=== PATIENT | male | born 1975 | race Caucasian/White ===

== ENCOUNTER 2024-06-29 07:07 | Emergency (ER) | payer BC, OTHER ==
[2024-06-29] MEDS ORDERED: MAGNES/ALUMIN/SIMET 30ML UCUP ONE (07:51)
[2024-06-29] MEDS ORDERED: KETOROLAC 30 MG/ML INJ ONE (07:51)
[2024-06-29] MEDS ORDERED: LIDOCAINE VISCOUS 2% 10ML ORAL SOLN ONE (07:51)
[2024-06-29 08:06] LABS: Absolute Eosinophils 0.2 K/uL (0-0.5); Absolute Lymphocytes (CBC) 1.8 K/uL (0.7-4.9); Absolute Monocytes 0.5 K/uL (0.1-1.3); Absolute Neutrophil 10.2 K/uL (1.8-8.0); Basophils % 0.2 % (0-1.3); Eosinophils % 1.7 % (0-4.4); Hematocrit 40.2 % (39.6-49.0); Lymphocytes % 13.9 % (15.3-44.8); MCH 32.7 pg (27.0-35.0); MCHC 34.9 g/dL (32.0-36.0); MCV 93.8 fL (80-100); MPV 6.9 fL (7.6-11.3); Monocytes % 3.8 % (3.3-12.3); Neutrophils % 80.4 % (41.7-73.7); Platelets 302 thou/uL (152-406); RBC Red Blood Cell Count 4.29 M/uL (4.33-5.43); Red Cell Distribution Width 12.5 % (12.1-15.2)
--- NOTE | 2024-06-29 08:33 | RAD REPORT ---
EXAM: Chest Single View HISTORY: CHEST PAIN COMPARISON: 12/20/2023 FINDINGS: LUNGS/PLEURA: The lungs are clear. No pleural effusions or pneumothorax. No pulmonary edema. MEDIASTINUM: The mediastinal silhouette is within normal limits. CARDIAC: The cardiac silhouette is within normal limits. UPPER ABDOMEN: No significant abnormality. BONES: No acute abnormality. LINES/TUBES/OTHER: N/A IMPRESSION: No evidence of acute cardiopulmonary disease.
[2024-06-29 08:36] LABS: Albumin 3.9 g/dL (3.4-5.0); Bilirubin Direct 0.2 mg/dL (0-0.2); Bilirubin Indirect, Calculated 0.4 mg/dL (0.2-0.8); Bilirubin Total 0.6 mg/dL (0.2-1.0); Protein, Total 7.9 g/dL (6.4-8.2)
[2024-06-29 09:06] LABS: Troponin High Sensitivity 12.6 pg/mL (<58.9)
--- NOTE | 2024-06-29 10:42 | EDPHYS ---
Physician Documentation [facility] Name: Dada Almonte Age: 48 yrs Sex: Male : 1975 Arrival Date: 06/29/2024 Time: 07:07 Bed 20 Private MD: ED Physician Desean Luke HPI: 06/29 07:38 This 48 yrs old Male presents to ER via Ambulatory with complaints of Chest Pain, rt armpit pain. 07:38 Patient presents to the ED with a left-sided chest pain radiating to the axilla rt starting last night. It fluctuates in intensity but is not gone completely. Denies aggravating or alleviating factors. Patient reports burping and reflux symptoms which she associates with the pain. Denies other acute complaints, symptoms are moderate in severity, no other aggravating elevating factors.. Historical: - Allergies: 07:30 Iodine; ap3 - Home Meds: 07:30 Albuterol Inhl [Active]; ap3 - PMHx: 07:30 Asthma; ap3 - Immunization history:: Client reports receiving the 2nd dose of the Covid vaccine, Flu vaccine is not up to date. - Infectious Disease History:: Denies. - Social history:: Smoking status: Patient reports use of chewing tobacco. - Family history:: not pertinent. ROS: 07:38 Constitutional: Negative for fever, chills, and weight loss, Respiratory: Negative for rt shortness of breath, cough, wheezing, and pleuritic chest pain, Abdomen/GI: Negative for abdominal pain, nausea, vomiting, diarrhea, and constipation, MS/Extremity: Negative for injury and deformity, Skin: Negative for injury, rash, and discoloration, Neuro: Negative for headache, weakness, numbness, tingling, and seizure, 07:38 Cardiovascular: Positive for chest pain, Negative for edema, Exam: 07:38 Constitutional: This is a well developed, well nourished patient who is awake, alert, rt and in no acute distress. Head/Face: Normocephalic, atraumatic. Cardiovascular: Regular rate and rhythm with a normal S1 and S2. No gallops, murmurs, or rubs. Normal PMI, no JVD. No pulse deficits. Respiratory: Lungs have equal breath sounds bilaterally, clear to auscultation and percussion. No rales, rhonchi or wheezes noted. No increased work of breathing, no retractions or nasal flaring. Abdomen/GI: Soft, non-tender, with normal bowel sounds. No distension or tympany. No guarding or rebound. No evidence of tenderness throughout. Skin: Warm, dry with normal turgor. Normal color with no rashes, no lesions, and no evidence of cellulitis. MS/ Extremity: Pulses equal, no cyanosis. Neurovascular intact. Full, normal range of motion. Neuro: Awake and alert, GCS 15, oriented to person, place, time, and situation. Cranial nerves II-XII grossly intact. Motor strength 5/5 in all extremities. Sensory grossly intact. Cerebellar exam normal. Normal gait. 07:38 Chest/axilla: Palpation to the left side of the chest and to the axilla reproduces chest pain, 1 palpable tender lymph node in the left axilla. 07:38 ECG was reviewed by the Attending Physician. Vital Signs: 07:28 BP 131 / 90; Pulse 77; Resp 17; Temp 98(O); Pulse Ox 100% on R/A; Weight 65.77 kg; ap3 Height 5 ft. 6 in. ; Pain 6/10; 08:33 BP 108 / 75; Pulse 81; Resp 18 S; Pulse Ox 100% on R/A; aa5 09:54 BP 114 / 77; Pulse 60; Resp 15; Pulse Ox 99% on R/A; hb 10:34 BP 111 / 72; Pulse 59; Resp 14 S; Pulse Ox 99% on R/A; aa5 07:28 Body Mass Index 23.40 (65.77 kg, 167.64 cm) ap3 07:28 Pain Scale: Adult ap3 MDM: 07:29 Medical Screening Exam initiated rt 14:09 Differential diagnosis: Nonspecific chest pain, chest wall pain, ACS, pneumonia. HEART rt Score: History: Slightly Suspicious (0), ECG: Normal (0), Age: > 45 and < 65 years (1), Risk Factors: No Risk Factors Known (0), Troponin: < or = 1 x Normal Limit (0), Total Score = 1. Data reviewed: vital signs, lab test result(s), EKG, radiologic studies. Consideration of Admission/Observation Escalation of care including admission/observation considered. 2 negative enzymes, low suspicion for acute coronary syndrome, does not require admission for ACS rule out, patient to follow-up with cardiology as an outpatient.. I considered the following discharge prescriptions or medication management in the emergency department Medications were administered in the Emergency Department. See MAR. Independent interpretation of the following test(s) in the Emergency Department X-Ray: My interpretation is No infiltrate seen on interpretation of x-ray images. Test considered but Not performed: CT: Low suspicion for pulmonary embolism, PE RC negative, does not require CT angiogram to rule out pulmonary embolus. Care significantly affected by the following chronic conditions: Asthma. Counseling: I had a detailed discussion with the patient and/or guardian regarding the historical points, exam findings, and any diagnostic results supporting the discharge/admit diagnosis, lab results, radiology results, the need for outpatient follow up, to return to the emergency department if symptoms worsen or persist or if there are any questions or concerns that arise at home. Response to treatment: the patient's symptoms have markedly improved after treatment. 06/29 07:35 Order name: Basic Metabolic Panel; Complete Time: 09:07 06/29 07:35 Order name: CBC with Diff; Complete Time: 08:34 rt 06/29 07:35 Order name: LFT's; Complete Time: 09:07 rt 06/29 07:35 Order name: Troponin HS; Complete Time: 09:06/29 09:56 Order name: Troponin High Sensitivity; Complete Time: 10:32 aa5 06/29 07:35 Order name: XRAY Chest (1 view); Complete Time: 08:34 06/29 07:35 Order name: Cardiac monitoring; Complete Time: 07:48 rt 06/29 07:35 Order name: EKG - Nurse/Tech; Complete Time: 07:55 rt 06/29 07:35 Order name: IV Saline Lock; Complete Time: 07:55 rt 06/29 07:35 Order name: Labs collected and sent; Complete Time: 07:55 rt 06/29 07:35 Order name: O2 Per Protocol; Complete Time: 07:48 06/29 07:35 Order name: O2 Sat Monitoring; Complete Time: 07:48 rt EC:38 Rate is 82 beats/min. Rhythm is regular, Normal Sinus Rhythm with Incomplete right rt bundle branch block. QRS [place] is Normal. [place] interval is normal. QRS interval is normal. QT interval is normal. No Q waves. No ST changes noted. Interpreted by me. Administered Medications: 07:55 Drug: GI Cocktail without - (Maalox PO 30 ml, Lidocaine Mucous Membrane 2 % 15 aa5 ml) PO once Route: PO; 09:56 Follow up: Response: No adverse reaction aa5 07:57 Drug: Ketorolac IVP 15 mg IVP once Route: IVP; Site: left antecubital; aa5 08:01 Follow up: Response: No adverse reaction aa5 Disposition Summary: 06/29/24 10:42 Discharge Ordered Notes: Location: Home rt Problem: new rt Symptoms: have improved rt Condition: Stable rt Diagnosis - Chest pain, unspecified rt Followup: rt - With: Sumeet Anderson MD - When: 2 - 3 days - Reason: Discharge Instructions: - Discharge Summary Sheet rt - Nonspecific Chest Pain, Adult rt Forms: - Medication Reconciliation Form rt - Antibiotic Education rt - Prescription Opioid Use rt - Patient Portal Instructions rt - Leadership Thank You Letter rt Signatures: Dispatcher [employer] EDPaulina Dodson, RN RN aa5 Tatum Muhammad RN RN ap3 Desean Luke MD MD rt Corrections: (The following items were deleted from the chart) 07:36 07:36 BASIC METABOLIC PANEL+C.LAB.BRZ ordered. EDMS EDMS 07:36 07:36 CBC+H.LAB.BRZ ordered. EDMS EDMS 07:36 07:36 HEPATIC FUNCTION+C.LAB.BRZ ordered. EDMS EDMS 07:36 07:36 Troponin High Sensitivity+C.LAB.BRZ ordered. EDMS EDMS 07:36 07:36 Chest Single View+RAD.RAD.BRZ ordered. EDMS EDMS
--- NOTE | 2024-06-29 10:42 | ER ---
Nurse's Notes [facility] Name: Dada Almonte Age: 48 yrs Sex: Male : 1975 Arrival Date: 06/29/2024 Time: 07:07 Bed 20 Private MD: Diagnosis: Chest pain, unspecified Presentation: 06/29 07:28 Chief complaint: Patient states: he started having chest pain in the middle of the ap3 night on the left side that radiates under the left arm.. patient currently rates his pain as a 6/10 on the pain scale. Coronavirus screen: At this time, the client does not indicate any symptoms associated with coronavirus-19. Ebola Screen: No symptoms or risks identified at this time. Initial Sepsis Screen: Does the patient meet any 2 criteria? No. Patient's initial sepsis screen is negative. Does the patient have a suspected source of infection? No. Patient's initial sepsis screen is negative. Risk Assessment: Do you want to hurt yourself or someone else? Patient reports no desire to harm self or others. Onset of symptoms was June 29, 2024. 07:28 Method Of Arrival: Ambulatory ap3 07:28 Acuity: ROB 2 ap3 Triage Assessment: 07:32 General: Appears in no apparent distress. Behavior is calm, cooperative, appropriate ap3 for age. Pain: Complains of pain in anterior aspect of left upper chest Pain radiates to left axilla Pain currently is 6 out of 10 on a pain scale. Pain began 4 hours ago. Neuro: Level of Consciousness is awake, alert, obeys commands, Oriented to person, place, time, situation, Appropriate for age. Cardiovascular: Patient's skin is warm and dry. Cardiovascular: Reports chest pain. Respiratory: Airway is patent Respiratory effort is even, unlabored, Respiratory pattern is regular, symmetrical. Historical: - Allergies: 07:30 Iodine; ap3 - Home Meds: 07:30 Albuterol Inhl [Active]; ap3 - PMHx: 07:30 Asthma; ap3 - Immunization history:: Client reports receiving the 2nd dose of the Covid vaccine, Flu vaccine is not up to date. - Infectious Disease History:: Denies. - Social history:: Smoking status: Patient reports use of chewing tobacco. - Family history:: not pertinent. Screenin:[facility] ED Fall Risk Assessment (Adult) History of falling in the last 3 months, ap3 including since admission No falls in past 3 months (0 pts) Confusion or Disorientation No (0 pts) Intoxicated or Sedated No (0 pts) Impaired Gait No (0 pts) Mobility Assist Device Used No (0 pt) Altered Elimination No (0 pt) Score/Fall Risk Level 0 - 2 = Low Risk Oriented to surroundings, Maintained a safe environment, Educated pt \\T\\ family on fall prevention, incl call for assistance when getting out of bed, Assessed \\T\\ reinforced patient's understanding of fall precautions, Hourly rounding (assess needs \\T\\ fall precautionary measures) done, Used ambulatory aids as needed (educated on \\T\\ assisted with), Used gait belt as appropriate. Abuse screen: Denies threats or abuse. Nutritional screening: No deficits noted. Tuberculosis screening: No symptoms or risk factors identified. Assessment: 07:45 General: Appears comfortable, Behavior is calm, cooperative. Pain: Complains of pain in aa5 chest Pain radiates to left arm and left axilla Pain currently is 6 out of 10 on a pain scale. Pain began approximately 5hrs ago. Neuro: Level of Consciousness is awake, alert, obeys commands, Oriented to person, place, time, situation. Cardiovascular: Heart tones S1 S2 present Rhythm is regular. Respiratory: Airway is patent Respiratory effort is even, unlabored, Respiratory pattern is regular, symmetrical. GI: No signs and/or symptoms were reported involving the gastrointestinal system. : No signs and/or symptoms were reported regarding the genitourinary system. EENT: No signs and/or symptoms were reported regarding the EENT system. Derm: Skin is pink, warm \\T\\ dry. Musculoskeletal: Range of motion: intact in all extremities. 08:32 Reassessment: Patient is alert, oriented x 3, equal unlabored respirations, skin aa5 warm/dry/pink. Awaiting complete lab results. When asked if any complaints, pt states "I'm alright". . 09:55 Reassessment: Patient appears in no apparent distress at this time. Patient and/or hb family updated on plan of care and expected duration. Pain level reassessed. Patient is alert, oriented x 3, equal unlabored respirations, skin warm/dry/pink. 10:00 Reassessment: Patient is alert, oriented x 3, equal unlabored respirations, skin aa5 warm/dry/pink. 10:00 Reassessment: Repeat troponin drawn and sent to lab. . aa5 Vital Signs: 07:28 BP 131 / 90; Pulse 77; Resp 17; Temp 98(O); Pulse Ox 100% on R/A; Weight 65.77 kg; ap3 Height 5 ft. 6 in. ; Pain 6/10; 08:33 BP 108 / 75; Pulse 81; Resp 18 S; Pulse Ox 100% on R/A; aa5 09:54 BP 114 / 77; Pulse 60; Resp 15; Pulse Ox 99% on R/A; hb 10:34 BP 111 / 72; Pulse 59; Resp 14 S; Pulse Ox 99% on R/A; aa5 07:28 Body Mass Index 23.40 (65.77 kg, 167.64 cm) ap3 07:28 Pain Scale: Adult ap3 ED Course: 07:09 Patient arrived in ED. im 07:20 Desean Luke MD is Attending Physician. rt 07:30 Triage completed. ap3 07:33 Arm band placed on right wrist. ap3 07:33 Patient maintains SpO2 saturation greater than 95% on room air. ap3 07:45 Patient has correct armband on for positive identification. Placed in gown. Bed in low aa5 position. Call light in reach. Side rails up X2. Client placed on continuous cardiac and pulse oximetry monitoring. NIBP monitoring applied. groundwater monitoring technician on. Pulse ox on. NIBP on. 07:48 Paulina Brand, RN is Primary Nurse. aa5 07:57 Initial lab(s) drawn, by me, sent to lab. EKG done, by ED staff, reviewed by Desean Luke MD. Inserted saline lock: 20 gauge in left antecubital area, using aseptic technique. Blood collected. Flushed with 10 mL NS. 08:09 XRAY Chest (1 view) In Process Unspecified. EDMS 08:33 No provider procedures requiring assistance completed. aa5 10:42 Sumeet Anderson MD is Referral Physician. rt 10:52 Provided Education on: discharge instructions . ap3 10:52 IV discontinued, intact, bleeding controlled, No redness/swelling at site. Pressure ap3 dressing applied. Administered Medications: 07:55 Drug: GI Cocktail without - (Maalox PO 30 ml, Lidocaine Mucous Membrane 2 % 15 aa5 ml) PO once Route: PO; 09:56 Follow up: Response: No adverse reaction aa5 07:57 Drug: Ketorolac IVP 15 mg IVP once Route: IVP; Site: left antecubital; aa5 08:01 Follow up: Response: No adverse reaction aa5 Medication: 07:59 VIS not applicable for this client. aa5 Outcome: 10:42 Discharge ordered by MD. rt 10:51 Discharged to home ambulatory, ap3 10:51 Condition: good 10:51 Discharge instructions given to patient, Instructed on discharge instructions, follow up and referral plans. Demonstrated understanding of instructions, follow-up care, 10:52 Patient left the ED. ap3 Signatures: Dispatcher [employer] EDMS Paulina Brand RN RN aa5 Maria Alejandra Howard RN RN Tatum Muhammad RN RN ap3 Desean Luke MD MD rt Mónica Burrell Tylor ty Corrections: (The following items were deleted from the chart) 08:01 07:55 Ketorolac IVP 15 mg IVP in left antecubital aa5 aa5
[2024-06-29 11:48] VITALS: TEMP 98
[2024-06-29 11:50] VITALS: O2SAT 99
[2024-06-29 11:51] VITALS: BP 111/72
--- NOTE | 2024-06-29 15:06 | EKG ---
Test Date: 2024-06-29 Test Time: 07:28:24 Cash Manager: DARRION MEASUREMENT RESULTS: Intervals: Rate: 82 AK: 144 QRSD: 92 QT: 378 QTc: 441 [place]: P: 57 AK: 144 QRS: 88 T: 60 INTERPRETIVE STATEMENTS: Normal sinus rhythm with sinus arrhythmia Incomplete right bundle branch block Borderline ECG No previous ECG available for comparison Electronically Signed On 06-29-24 15:05:39 DUAL HOSE CEMENTER by Sumeet Anderson
== END 2024-06-29 10:52 | disposition home or self-care (01) ==
LOC: ER 07:07
DX: R07.89 Other chest pain (principal); Z72.0 Tobacco use
CPT/HCPCS: 36415; 71045; 80048; 80076; 84484; 85025; 93005; 96374; 99285